=== PATIENT | male | born 1965 | race African-American/Black ===

== ENCOUNTER 2021-06-08 23:40 | Inpatient (IN) | payer OTHER ==
[~2021-06-08] VITALS: Ht 180.3 cm; Wt 99.3 kg
--- NOTE | 2021-06-08 23:51 | NUR ---
PT AAOX3, BIBRA FROM HIS HOME. C/O HAVING R SIDED CP. ALSO, PER RA, PT DID HAVE A "STOMACH BUG" SINCE LAST TUESDAY. PT NOTED TO HAVE A FEVER OF 101.5. PER RA, STATED HE WAS ACTING "WEIRD" AND CONFUSED. PLACED IN BED 6 ON ENGINE LATHE OPERATOR AND PULSE OX. LINE ESTABLISHED LAC 20G, BLOOD WORK COLLECTED, SENT TO LAB.
[2021-06-09] MEDS ORDERED: ACETAMINOPHEN ES 500 MG TABLET ONE (00:29)
[2021-06-09] MEDS ORDERED: ACETAMINOPHEN 325 MG TABLET PO ONE ×2 (00:30→13:30)
[2021-06-09 00:32] LABS: BASOPHILS # (AUTO) 0.1 K/uL (0.0-0.2); BASOPHILS % (AUTO) 0.2 % (0.0-2.0); EOSINOPHILS % (AUTO) 0.1 % (0.0-6.0); HEMATOCRIT 21 % (39-51); HEMOGLOBIN 7.1 g/dL (13.5-17.5); LYMPHOCYTES # (AUTO) 2.3 K/uL (0.8-4.8); LYMPHOCYTES % (AUTO) 10.7 % (20.0-44.0); MEAN CORPUSCULAR HGB CONC 35 g/dl (31.0-36.0); MEAN CORPUSCULAR VOLUME 86 fL (80-96); MONOCYTES # (AUTO) 3.1 K/uL (0.1-1.30); MONOCYTES % (AUTO) 14.7 % (2.0-12.0); NEUTROPHILS # (AUTO) 15.7 K/uL (1.8-8.9); NEUTROPHILS % (AUTO) 74.3 % (43.0-81.0); PLATELET COUNT (AUTO) 106 K/uL (150-450); RED BLOOD CELL COUNT(AUTO) 2.38 MIL/uL (4.5-6.0); WHITE BLOOD COUNT (AUTO) 21.1 K/uL (4.3-11.0)
--- NOTE | 2021-06-09 00:34 | NUR ---
PT NOTED TO BE SAT 88%. PLACED ON 2L NC.
--- NOTE | 2021-06-09 00:38 | NUR ---
UNABLE TO PROVIDE URINE.
--- NOTE | 2021-06-09 00:38 | NUR ---
CUCOID SWABBED, SENT TO LAB.
[2021-06-09 00:45] LABS: CALCIUM, SERUM 8.4 mg/dL (8.5-10.1); CREATININE 3.8 mg/dL (0.6-1.3); POTASSIUM 4.1 mmol/L (3.5-5.1)
[2021-06-09 00:51] LABS: ALBUMIN 3.8 g/dL (3.4-5.0); BILIRUBIN,DIRECT 0.6 mg/dL (0.0-0.2); BILIRUBIN,TOTAL 2.1 mg/dL (0.2-1.0); TOTAL PROTEIN, SERUM 7.4 g/dL (6.4-8.2)
[2021-06-09] MEDS ORDERED: PIPERACILLIN /TAZOBACTAM 3.375 G VIAL IV ONE (00:51)
[2021-06-09] MEDS ORDERED: IV NS 0.9% 1,000 ML BAG IV ONE ×2 (01:00→02:30)
[2021-06-09] MEDS ORDERED: PIPERACILLIN /TAZOBACTAM 3.375 G in IV D5W 50 ML IV ONE (01:00)
--- NOTE | 2021-06-09 01:01 | NUR ---
BRENNAN () STATED THEY MOVED HERE A MONTH AGO. WENT TO [employer] LAST WEEK ATE SOMETHING, STARTED HAVING A STOMACH ACHE. SINCE 2 DAYS AGO, HE HAS BEEN FEELING "WEIRD." CALL BACK.
[2021-06-09] MEDS ORDERED: ASPIRIN 81 MG TAB.CHEW PO ONE (02:00)
[2021-06-09] MEDS ORDERED: ASPIRIN 81 MG TAB.CHEW ONE (02:04)
[2021-06-09] MEDS ORDERED: IV NS 0.9% 1,000 ML IV ONE (02:30)
[2021-06-09 02:39] LABS: BILIRUBIN,URINE Negative (NEGATIVE); COLOR,URINE YELLOW (YELLOW); LEUKOCYTE ESTERASE ,URINE Negative (NEGATIVE); NITRITE, URINE Negative (NEGATIVE); PROTEIN,URINE 30 mg/dl (NEGATIVE); UGLUCOSE Negative (NEGATIVE); UROBILINOGEN,URINE 0.2 EU/dL (0.2)
[2021-06-09] MEDS ORDERED: HYDROMORPHONE INJ 2 MG/ML DISP.SYRIN IV PRN (03:00)
[2021-06-09] MEDS ORDERED: Z GUARD REMEDY 2 OZ OINT TP PRN (03:00)
[2021-06-09] MEDS ORDERED: HEPARIN SODIUM, PORCINE 5000 UNITS/1 ML VIAL SQ SCH (03:00)
[2021-06-09] MEDS ORDERED: IV LR 1000 ML 1,000 ML IV PRN (03:00)
[2021-06-09] MEDS ORDERED: ACETAMINOPHEN 325 MG TABLET PO PRN (03:00)
[2021-06-09] MEDS ORDERED: HEPARIN INFUSION/D5W 500 ML IV PRN (03:00)
[2021-06-09] MEDS ORDERED: MAGNESIUM HYDROXIDE 30 ML UDC PO PRN (03:00)
[2021-06-09] MEDS ORDERED: HEPARIN SODIUM, PORCINE 5000 UNITS/1 ML VIAL IV ONE (03:00)
[2021-06-09 03:12] LABS: BACTERIA,URINE None seen /HPF (None Seen); RBC,URINE 0-2 /HPF (0-2); SQUAMOUS EPITHELIAL CELL,UR None Seen /HPF (None Seen); URINE AMORPHOUS PHOSPHATES Rare /HPF (None Seen); WBC,URINE 0-2 /HPF (0-3)
--- NOTE | 2021-06-09 03:39 | NUR ---
CALLED AFTER HOUR PHARMACY AND SPOKE TO TAILOR TO VERIFY THE ADMITTING ORDERS
[2021-06-09 03:59] LABS: IRON, SERUM 20 ug/dl (50-175); TOTAL IRON BINDING CAPACITY 344 ug/dl (250-450)
[2021-06-09] MEDS ORDERED: HEPARIN INFUSION/D5W 500 ML IV ONE (04:50)
[2021-06-09] MEDS ORDERED: HEPARIN SODIUM, PORCINE 5000 UNITS/1 ML VIAL ONE (04:50)
--- NOTE | 2021-06-09 05:00 | NUR ---
HEPARIN STARTED AT 0500. REDRAW @ 1100
--- NOTE | 2021-06-09 05:24 | NUR ---
PT AWAKE IN BED, REQUESTED FOR BLANKETS.
[2021-06-09 06:15] LABS: BASOPHILS # (AUTO) 0.2 K/uL (0.0-0.2); EOSINOPHILS % (AUTO) 0.2 % (0.0-6.0); LYMPHOCYTES # (AUTO) 2.3 K/uL (0.8-4.8); LYMPHOCYTES % (AUTO) 13.3 % (20.0-44.0); MEAN CORPUSCULAR HGB CONC 34 g/dl (31.0-36.0); MEAN CORPUSCULAR VOLUME 87 fL (80-96); MONOCYTES % (AUTO) 6.2 % (2.0-12.0); NEUTROPHILS # (AUTO) 13.4 K/uL (1.8-8.9); NEUTROPHILS % (AUTO) 79.3 % (43.0-81.0); PLATELET COUNT (AUTO) 95 K/uL (150-450); RED BLOOD CELL COUNT(AUTO) 2.13 MIL/uL (4.5-6.0)
[2021-06-09 06:17] LABS: HEMOGLOBIN 6.3 g/dL (13.5-17.5)
[2021-06-09 06:18] LABS: HEMATOCRIT 19 % (39-51)
[2021-06-09 06:24] LABS: CALCIUM, SERUM 7.6 mg/dL (8.5-10.1); CREATININE 3.4 mg/dL (0.6-1.3); POTASSIUM 3.8 mmol/L (3.5-5.1)
[2021-06-09] MEDS ORDERED: PANTOPRAZOLE 40 MG TABLET.DR PO SCH (07:30)
[2021-06-09] MEDS ORDERED: AMLO1CAP2 PO (07:33)
[2021-06-09] MEDS ORDERED: [UNRECOGNIZED DRUG - REMARK] PO (07:35)
[2021-06-09 08:00] VITALS: BP 137/91
[2021-06-09] MEDS ORDERED: PIPERACILLIN /TAZOBACTAM 3.375 G in IV D5W 100 ML IV SCH (08:00)
--- NOTE | 2021-06-09 08:00 | NUR ---
RN NOTE PT A/Ox4, WALKED FROM [facility] TO BED, STEADY GAIT, BREATHING RA, SPO2 92%, NO RESP DISTRESS OR SOB. PT C/O PAIN 06/30 RLQ ABD PAIN, DENIES CHEST PAIN, WILL ADMIN MEDS ORDERED. PT HAS LAC ACCESS FLUSHED AND INTACT. PT SKIN INTACT. ALL PT SAFETY PRECAUTIONS IN PLACE, WILL CONT TO MONITOR
[2021-06-09] MEDS ORDERED: VANCOMYCIN HCL 1.25 GM in IV D5W 260 ML IV SCH (10:00)
--- NOTE | 2021-06-09 10:00 | NUR ---
RN NOTE PER DR JANES WILKES, HEPARIN DRIP STOPPED FOR LOW H/H
[2021-06-09] MEDS: PANTOPRAZOLE 40 MG VIAL IV SCH ×2 (10:19→18:13)
[2021-06-09] MEDS ORDERED: Medication Not On Formulary EA (Amlodipine Besylate/Benazepril (Lotrel 10-40 Mg Capsule) PO SCH (10:30)
[2021-06-09] MEDS ORDERED: BENAZEPRIL HCL 20 MG TABLET PO SCH (11:00)
[2021-06-09 12:00] VITALS: BP 130/71
[2021-06-09] MEDS: VANCOMYCIN 1 GM in IV D5W 250ml IV SCH (12:00)
[2021-06-09] MEDS ORDERED: CEFTRIAXONE 1 G in IV D5W 50 ML IV SCH (12:00)
[2021-06-09] MEDS: AMLODIPINE BESYLATE 10 MG TABLET PO SCH (12:00)
[2021-06-09] MEDS: IV LR 1000 ML 1,000 ML IV PRN ×2 (12:01→22:56)
[2021-06-09] MEDS: HYDROMORPHONE INJ 2 MG/ML DISP.SYRIN IV PRN ×5 (12:09→22:56)
[2021-06-09 13:16] LABS: LYMPHOCYTES % (MANUAL) 14 % (16-48); MONOCYTES % (MANUAL) 8 % (0-11.0); NEUTROPHILS % (MANUAL) 78 (42-76)
[2021-06-09] MEDS ORDERED: diphenhydrAMINE HCL 50 MG/ML VIAL IV ONE (13:30)
[2021-06-09] MEDS ORDERED: DEXAMETHASONE SOD PHOSPHATE 10 MG/ML VIAL IV ONE (13:30)
[2021-06-09] MEDS ORDERED: SOD FERRIC GLUC 125 MG in IV NS 0.9% 100 ML IV SCH (14:00)
[2021-06-09 14:55] LABS: HEMOGLOBIN 6.5 g/dL (13.5-17.5)
[2021-06-09 16:00] VITALS: BP 110/59
--- NOTE | 2021-06-09 19:00 | NUR ---
RN CLOSING NOTE NO CHANGES TO PT DURING SHIFT, JARED ENDORSED TO RN
--- NOTE | 2021-06-09 19:15 | NUR ---
RECEIVED PT AWAKE A/Ox4, BREATHING RA, SPO2 96%, NO RESP DISTRESS OR SOB. PT C/O PAIN 8 RLQ ABD PAIN, DENIES CHEST PAIN, WILL ADMIN MEDS ORDERED. PT HAS LAC ACCESS FLUSHED AND INTACT.TELE MONITOR READS SINUS RHYTHM 90'S PT SKIN INTACT. ALL PT SAFETY PRECAUTIONS IN PLACE, WILL CONT TO MONITOR
[2021-06-09 20:00] VITALS: BP 148/71
[2021-06-09 20:43] LABS: OCCULT BLOOD STOOL NEGATIVE (NEGATIVE)
[2021-06-09] MEDS: CEFTRIAXONE 1 G in IV D5W 50 ML IV SCH (20:47)
[2021-06-10] VITALS (9 sets, daily range): BP systolic 104–132; BP diastolic 62–76
[2021-06-10] MEDS: HYDROMORPHONE INJ 2 MG/ML DISP.SYRIN IV PRN ×7 (03:20→22:32)
--- NOTE | 2021-06-10 03:30 | NUR ---
BLOOD TRANSFUSION STARTED, BLOOD VERIFY AND CHECKED WITH OTHER NURSE, V.S CHECKED AND RECORDED PT IS SLEEPING INTERMITTENTLY BUT EASY TO WAKE UP A/O X4 WILL CONT TO MONITOR
--- NOTE | 2021-06-10 06:35 | NUR ---
BLOOD TRANSFUSION ENDED AND TOLERATING WELL, V/S CHECKED AND RECORDED, PT STILL ON ROOM AIR SPO2 95% NO SIGN OF ANY RESPIRATORY DISTRESS NOTED, PAIN ON RIGHT LOWER ABDOMEN STILL COMPLAINT, PRN MEDS GIVEN, ALL NEEDS ATTENDED, TELE MONITOR READS SINUS RHYTHM 80'S, BED ON LOWEST POSITION AND LOCKED SIDE RAILS UP X2 CALL LIGHT WITHIN REACH WILL ENDORSED TO AM SHIFT NURSE
--- NOTE | 2021-06-10 07:10 | NUR ---
RN OPENING NOTES RECEIVED PT AWAKE, A/O X4. STABLE ON ROOM AIR, SATING 97%. NO SOB OR ANY S/S RESPIRATORY DISTRESS. DENIES CHEST PAIN. IV ACCESS AT LAC #20 AND ADI MIDLINE BOTH INTACT AND PATENT.TELE MONITOR READS SINUS RHYTHM. SKIN INTACT. AMBULATORY. BRP. SAFETY PRECAUTIONS IN PLACE. CALL LIGHT WITHIN REACH. BED LOCKED AND IN LOWEST POSITION WITH SIDE RAILS UP X2. WILL CONTINUE TO MONITOR.
[2021-06-10] MEDS: PANTOPRAZOLE 40 MG VIAL IV SCH (08:18)
[2021-06-10] MEDS: AMLODIPINE BESYLATE 10 MG TABLET PO SCH (09:00)
[2021-06-10 09:07] LABS: *SPE ALBUMIN 3.1 g/dL (2.9-4.4); *SPE ALPHA-1-GLOBULIN 0.3 g/dL (0.0-0.4); *SPE ALPHA-2-GLOBULIN 0.6 g/dL (0.4-1.0); *SPE BETA GLOBULIN 0.8 g/dL (0.7-1.3); *SPE GLOBULIN, TOTAL 3.2 g/dL (2.2-3.9); *SPE M-SPIKE 0.6 g/dL (Not Observed); *SPEGAMMA GLOBULIN 1.5 g/dL (0.4-1.8)
[2021-06-10 09:21] LABS: BASOPHILS # (AUTO) 0.1 K/uL (0.0-0.2); BASOPHILS % (AUTO) 0.4 % (0.0-2.0); EOSINOPHILS % (AUTO) 0.1 % (0.0-6.0); HEMATOCRIT 21 % (39-51); HEMOGLOBIN 7.4 g/dL (13.5-17.5); LYMPHOCYTES # (AUTO) 0.9 K/uL (0.8-4.8); MEAN CORPUSCULAR HGB CONC 35 g/dl (31.0-36.0); MEAN CORPUSCULAR VOLUME 88 fL (80-96); MONOCYTES # (AUTO) 1.9 K/uL (0.1-1.30); MONOCYTES % (AUTO) 10.7 % (2.0-12.0); NEUTROPHILS # (AUTO) 15.2 K/uL (1.8-8.9); NEUTROPHILS % (AUTO) 83.8 % (43.0-81.0); PLATELET COUNT (AUTO) 129 K/uL (150-450); RED BLOOD CELL COUNT(AUTO) 2.39 MIL/uL (4.5-6.0); WHITE BLOOD COUNT (AUTO) 18.1 K/uL (4.3-11.0)
[2021-06-10 09:32] LABS: CALCIUM, SERUM 8.4 mg/dL (8.5-10.1); CREATININE 2.3 mg/dL (0.6-1.3); MAGNESIUM 2.5 mg/dL (1.8-2.4); POTASSIUM 4.3 mmol/L (3.5-5.1)
[2021-06-10] MEDS: VANCOMYCIN 1 GM in IV D5W 250ml IV SCH (11:56)
[2021-06-10] MEDS: IV LR 1000 ML 1,000 ML IV PRN (11:56)
[2021-06-10] MEDS: diphenhydrAMINE HCL 50 MG/ML VIAL IV PRN ×2 (12:35→21:20)
[2021-06-10] MEDS: PANTOPRAZOLE 40 MG TABLET.DR PO SCH (16:56)
[2021-06-10] MEDS: DIPHENOXYLATE HCL/ATROP SULF 1 UDTAB TABLET PO PRN (16:56)
--- NOTE | 2021-06-10 19:20 | NUR ---
RN CLOSING NOTES PATIENT A/O X4. COMPLAINS OF CHRONIC PAIN R/T SICKLE CELL RELIEVED AFTER ADMINISTRATION OF DILAUDID, HAD EPISODE OF LOOSE STOOL, SAMPLE COLLECTED SENT TO LAB TO RULE OUT C-DIFF UNDER PROTOCOL. IV ACCESS AT LAC #20 AND ADI MIDLINE BOTH INTACT AND PATENT.REFUSED TO WEAR TELE BOX, REASSIGNED TO MED SURG PER MD. SKIN REMAINS INTACT. PATIENT IS AMBULATORY WITH BRP. SAFETY PRECAUTIONS IN PLACE. CALL LIGHT WITHIN REACH. BED LOCKED AND IN LOWEST POSITION WITH SIDE RAILS UP X2. WILL ENDORSE TO NEXT INCOMING SHIFT.
[2021-06-10] MEDS: ONDANSETRON HCL/PF 4 MG/2 ML VIAL IVP PRN (19:22)
--- NOTE | 2021-06-10 19:30 | NUR ---
RN OPENING NOTES PT RECEIVED IN BED. A&OX4. PT IS CURRENTLY ON ROOM AIR WITH O2 SAT >95%. PT IS AMBULATORY WITH NORMAL SR IN 80S. SKIN IS INTACT. PT IS ON CARDIAC DIET. PT HAS ADI MIDLINE AND L AC GAUGE 20 WITH LR INFUSING AT @125ML/HR. ALL SAFETY MEASURES IMPLEMENTED. CALL LIGHT WITHIN REACH. BED LOCKED AND IN LOWEST POSITION. BED ALARM ON. WILL CONTINUE TO MONITOR THROUGHOUT THE SHIFT.
[2021-06-10] MEDS: CEFTRIAXONE 1 G in IV D5W 50 ML IV SCH (21:20)
[2021-06-10] MEDS ORDERED: METRONIDAZOLE 500MG/ NS 100ML 100 ML IV ONE (21:50)
[2021-06-10] MEDS: METRONIDAZOLE 500MG/ NS 100ML 500 MG in PREMIX 1 EA IV SCH (21:59)
[2021-06-11] MEDS: HYDROMORPHONE INJ 2 MG/ML DISP.SYRIN IV PRN ×7 (01:47→21:52)
[2021-06-11 04:00] VITALS: BP 147/86
--- NOTE | 2021-06-11 04:00 | NUR ---
RN NOTES STARTED 24 HOUR URINE COLLECTION; SPECIMEN CONTAINER @BEDSIDE. GAMBLING BROKER WELL AWARE.
[2021-06-11] MEDS ORDERED: METRONIDAZOLE 500MG/ NS 100ML 100 ML IV ONE (05:00)
[2021-06-11] MEDS: METRONIDAZOLE 500MG/ NS 100ML 500 MG in PREMIX 1 EA IV SCH ×3 (05:22→21:37)
[2021-06-11 06:19] LABS: BASOPHILS # (AUTO) 0.1 K/uL (0.0-0.2); BASOPHILS % (AUTO) 0.5 % (0.0-2.0); EOSINOPHILS % (AUTO) 0.1 % (0.0-6.0); HEMATOCRIT 23 % (39-51); HEMOGLOBIN 7.7 g/dL (13.5-17.5); LYMPHOCYTES # (AUTO) 2.9 K/uL (0.8-4.8); LYMPHOCYTES % (AUTO) 15.2 % (20.0-44.0); MEAN CORPUSCULAR HGB CONC 34 g/dl (31.0-36.0); MEAN CORPUSCULAR VOLUME 90 fL (80-96); MONOCYTES % (AUTO) 10.7 % (2.0-12.0); NEUTROPHILS % (AUTO) 73.5 % (43.0-81.0); PLATELET COUNT (AUTO) 151 K/uL (150-450); RED BLOOD CELL COUNT(AUTO) 2.52 MIL/uL (4.5-6.0)
[2021-06-11 06:43] LABS: ALBUMIN 3.1 g/dL (3.4-5.0); BILIRUBIN,DIRECT 0.3 mg/dL (0.0-0.2); BILIRUBIN,TOTAL 1.3 mg/dL (0.2-1.0); TOTAL PROTEIN, SERUM 6.5 g/dL (6.4-8.2)
[2021-06-11 06:57] LABS: CALCIUM, SERUM 9.1 mg/dL (8.5-10.1)
--- NOTE | 2021-06-11 06:59 | NUR ---
RN CLOSING NOTES NO SIGNIFICANT CHANGES IN PT CONDITION. NO S/S OF RESP DISTRESS/SOB. ALL DUE MEDS GIVEN. PT KEPT CLEAN AND COMFORTABLE. ALL SAFETY MEASURES IMPLEMENTED. WILL ENDORSE TO MORNING SHIFT RN FOR JARED.
[2021-06-11] MEDS: IV LR 1000 ML 1,000 ML IV PRN ×2 (07:01)
--- NOTE | 2021-06-11 07:48 | NUR ---
RN OPENING NOTES RECEIVED PATIENT AWAKE IN BED. ALERT AND ORIENTED X 4. NO SIGNS OR SYMPTOMS OF DISTRESS NOTED. NO COMPLAINTS OF PAIN AT THIS TIME. IV ACCESS ADI MIDLINE AND LAC#20 PATENT AND INTACT. ON ROOM AIR, TOLERATING WELL. SAFETY MEASURES IN PLACE WITH BED AT LOWEST POSITION AND SIDE RAILS UP X 2. CALL LIGHT IS WITHIN REACH. WILL CONTINUE TO MONITOR THROUGHOUT SHIFT.
[2021-06-11] MEDS: PANTOPRAZOLE 40 MG TABLET.DR PO SCH ×2 (08:23→17:45)
[2021-06-11] MEDS: AMLODIPINE BESYLATE 10 MG TABLET PO SCH (08:23)
[2021-06-11 12:00] VITALS: BP 137/68
[2021-06-11] MEDS: CHOLESTYRAMINE/ASPARTAME 4 G/PKT PACKET PO SCH (12:48)
--- NOTE | 2021-06-11 15:50 | NUR ---
RN NOTE ADI MIDLINE REMOVED ACCIDENTALLY WHEN MOVING IV POLE. GAUZE AND TAPE PLACED OVER IV SITE. CHARGE NURSE, SOON MADE AWARE.
--- NOTE | 2021-06-11 18:06 | NUR ---
RN NOTE PATIENT RETURNED FROM RADIOLOGY. PER [employer] PATIENT REFUSED TO COMPLETE SCAN. CHARGE NURSE MADE AWARE
--- NOTE | 2021-06-11 19:02 | NUR ---
RN CLOSING NOTES PATIENT IS AWAKE IN BED. ALERT AND ORIENTED X 4. NO SIGNS OR SYMPTOMS OF DISTRESS NOTED. NO COMPLAINTS OF PAIN AT THIS TIME. NEW IV ACCESS JAYMIE MIDLINE PATENT AND INTACT. ON ROOM AIR, TOLERATING WELL. SAFETY MEASURES IN PLACE WITH BED AT LOWEST POSITION AND SIDE RAILS UP X 2. CALL LIGHT IS WITHIN REACH. WILL ENDORSE CONTINUITY OF CARE TO ONCOMING SHIFT.
--- NOTE | 2021-06-11 19:30 | NUR ---
RN OPENING NOTES: RECEIVED PT A/OX4 IN BED RESTING COMFORTABLY. PATIENT IN NO S/SX OF ACUTE DISTRESS AT THIS TIME. NO SOB NOTED. PATIENT'S BREATHING IS EVEN AND UNLABORED. PATIENT IS ON ROOM AIR TOLERATING WELL. PATIENT ON CARDIAC DIET; TOLERATES WELL. NOTED IV SITE ON L UA MIDLINE #18 ; PATENT, INTACT AND FLUSHING WELL; NO S/S OF INFECTION OR INFILTRATION. SAFETY MEASURES HAVE BEEN PROVIDED AND IMPLEMENTED. PATIENT BED ALARM IS ON. HEAD OF BED ELEVATED. BED IS LOCKED, IN LOWEST POSITION AND SIDE RAILS UP. CALL LIGHT WITHIN REACH OF THE PATIENT. APPLICABLE ISOLATION PRECAUTIONS IN PLACE. WILL CONTINUE TO MONITOR AND REASSESS FOR ANY CHANGES AND WILL CARRY OUT ANY ONGOING AND ACTIVE MD ORDER.
[2021-06-11 20:00] VITALS: BP 154/99
[2021-06-11 20:08] VITALS: BP 154/99
[2021-06-11 21:06] LABS: *ANA ANTI-CENTROMERE B AB <0.2 AI (0.0-0.9); *ANA ANTI-DNA(DS) AB, QN 1 IU/mL (0-9); *ANA ANTI-JO-1 <0.2 AI (0.0-0.9); *ANA ANTICHROMATIN ANTIBODY <0.2 AI (0.0-0.9); *ANA RNP ANTIBODIES <0.2 AI (0.0-0.9); *ANA SJOGREN'S ANTI-SS-A 0.5 AI (0.0-0.9); *ANA SJOGREN'S ANTI-SS-B <0.2 AI (0.0-0.9); *ANAANTI-SCLERODERMA-70 AB <0.2 AI (0.0-0.9); *ANASMITH AB <0.2 AI (0.0-0.9)
[2021-06-11] MEDS: CEFTRIAXONE 1 G in IV D5W 50 ML IV SCH (21:37)
[2021-06-11] MEDS: diphenhydrAMINE HCL 50 MG/ML VIAL IV PRN (21:52)
--- NOTE | 2021-06-11 23:00 | NUR ---
RN NOTES NO CHANGE IN PATIENT CONDITION AT THIS TIME PATIENT VITALS STABLE, NO SIGNS OF ACUTE RESPIRATORY DISTRESS. CARE TRANSITIONS NURSE MADE AWARE. WILL CONTINUE TO MONITOR AND REASSESS FOR ANY CHANGES THROUGHOUT THE SHIFT.
--- NOTE | 2021-06-12 04:00 | NUR ---
RN NOTES DONE WITH 24 HOUR URINE COLLECTION; PULVI MIXER OPERATOR WELL AWARE. SPECIMEN TURNED OVER TO LAB.
--- NOTE | 2021-06-12 04:00 | NUR ---
RN NOTES PT REFUSED VITALS SIGNS TO BE TAKEN; RISK AND BENEFITS EXPLAINED, PT STILL REFUSED. FRONT END ARCHITECT WELL AWARE.
[2021-06-12] MEDS: METRONIDAZOLE 500MG/ NS 100ML 500 MG in PREMIX 1 EA IV SCH ×3 (05:46→20:57)
[2021-06-12] MEDS: HYDROMORPHONE INJ 2 MG/ML DISP.SYRIN IV PRN ×5 (05:54→18:57)
--- NOTE | 2021-06-12 06:44 | NUR ---
RN CLOSING NOTE: PATIENT REMAINS IN ROOM IN NO SIGNS OF RESPIRATORY DISTRESS, PATIENT STILL ON ROOM AIR ;TOLERATING WELL SATURATING @ >95% SP02. SAFETY MEASURES IMPLEMENTED, BED IN LOWEST POSITION, LOCKED, SIDE RAILS UP, CALL LIGHT WITHIN REACH. ALL NEEDS AND ORDERS ADDRESSED DURING THE SHIFT. IV ACCESS MAINTAINED INTACT, SECURED AND FLUSHING WELL. ALL DUE MEDS GIVEN ORDERED & SCHEDULED ; PATIENT TOLERATED WELL. PATIENT KEPT CLEAN AND COMFORTABLE WITHIN THE SHIFT. PATIENT ENDORSED TO INCOMING SHIFT RN WITH STABLE VITAL SIGN AND FOR CONTINUITY OF CARE.
[2021-06-12 07:02] LABS: BASOPHILS # (AUTO) 0.1 K/uL (0.0-0.2); EOSINOPHILS % (AUTO) 0.5 % (0.0-6.0); HEMATOCRIT 23 % (39-51); HEMOGLOBIN 7.6 g/dL (13.5-17.5); LYMPHOCYTES # (AUTO) 1.7 K/uL (0.8-4.8); LYMPHOCYTES % (AUTO) 11.5 % (20.0-44.0); MEAN CORPUSCULAR HGB CONC 34 g/dl (31.0-36.0); MEAN CORPUSCULAR VOLUME 91 fL (80-96); MONOCYTES # (AUTO) 1.4 K/uL (0.1-1.30); MONOCYTES % (AUTO) 9.6 % (2.0-12.0); NEUTROPHILS # (AUTO) 11.6 K/uL (1.8-8.9); NEUTROPHILS % (AUTO) 77.4 % (43.0-81.0); PLATELET COUNT (AUTO) 183 K/uL (150-450); RED BLOOD CELL COUNT(AUTO) 2.51 MIL/uL (4.5-6.0)
[2021-06-12 07:23] LABS: CALCIUM, SERUM 8.5 mg/dL (8.5-10.1); CREATININE 1.7 mg/dL (0.6-1.3); POTASSIUM 3.8 mmol/L (3.5-5.1)
[2021-06-12 08:28] VITALS: BP 154/101
[2021-06-12] MEDS: AMLODIPINE BESYLATE 10 MG TABLET PO SCH (08:34)
[2021-06-12] MEDS: PANTOPRAZOLE 40 MG TABLET.DR PO SCH ×2 (08:34→17:38)
[2021-06-12 09:45] VITALS: BP 151/101
[2021-06-12] MEDS: hydrALAZINE HCL 50 MG TABLET PO SCH ×3 (09:46→17:38)
[2021-06-12 10:14] LABS: EOSINOPHILS % (MANUAL) 2 % (0-4); LYMPHOCYTES % (MANUAL) 14 % (16-48); MONOCYTES % (MANUAL) 9 % (0-11.0); NEUTROPHILS % (MANUAL) 75 (42-76)
[2021-06-12] MEDS: NITROGLYCERIN 30 GM TUBE TP SCH ×2 (10:45→20:58)
[2021-06-12] MEDS: IV LR 1000 ML 1,000 ML IV PRN ×3 (10:52→18:29)
[2021-06-12 12:00] VITALS: BP 156/97
[2021-06-12] MEDS: CHOLESTYRAMINE/ASPARTAME 4 G/PKT PACKET PO SCH ×3 (12:39→23:45)
[2021-06-12] MEDS: ONDANSETRON HCL/PF 4 MG/2 ML VIAL IVP PRN ×2 (14:19→22:00)
[2021-06-12] MEDS: ENSURE CLEAR 237 ML LIQUID (MIX BERRY) PO SCH (17:38)
--- NOTE | 2021-06-12 18:36 | NUR ---
RN CLOSING NOTE Vance is A/ox4, in no acute distress, spo2 >95% on room air. BP managed with BP medications. Dilauded given for abdominal pain and Tylenol for headache. Pt uses urinal and ambulated to bathroom with supervision, BM x1. IVF running LR @125ml/hr. All needs met, all due meds given, independent with self-care. Safety measures in place, call light within reach, will endorse to next shift for JARED.
--- NOTE | 2021-06-12 19:30 | NUR ---
RN OPENING NOTES: RECEIVED PT A/OX4 IN BED RESTING COMFORTABLY. PATIENT IN NO S/SX OF ACUTE DISTRESS AT THIS TIME. NO SOB NOTED. PATIENT'S BREATHING IS EVEN AND UNLABORED. PATIENT IS ON ROOM AIR TOLERATING WELL. PATIENT ON CARDIAC DIET; TOLERATES WELL. NOTED IV SITE ON L UA MIDLINE #18 ; PATENT, INTACT AND FLUSHING WELL; NO S/S OF INFECTION OR INFILTRATION. WITH IV FLUID RUNNING ORDERED. SAFETY MEASURES HAVE BEEN PROVIDED AND IMPLEMENTED. PATIENT BED ALARM IS ON. HEAD OF BED ELEVATED. BED IS LOCKED, IN LOWEST POSITION AND SIDE RAILS UP. CALL LIGHT WITHIN REACH OF THE PATIENT. APPLICABLE ISOLATION PRECAUTIONS IN PLACE. WILL CONTINUE TO MONITOR AND REASSESS FOR ANY CHANGES AND WILL CARRY OUT ANY ONGOING AND ACTIVE MD ORDER.
[2021-06-12 20:00] VITALS: BP 150/97
[2021-06-12] MEDS: CEFTRIAXONE 1 G in IV D5W 50 ML IV SCH (20:57)
[2021-06-12] MEDS: HYDROMORPHONE 1 MG/1 ML DISP.SYRIN IV PRN (22:00)
--- NOTE | 2021-06-12 23:00 | NUR ---
RN NOTES NO CHANGE IN PATIENT CONDITION AT THIS TIME PATIENT VITALS STABLE, NO SIGNS OF ACUTE RESPIRATORY DISTRESS. FURNITURE ASSEMBLY SUPERVISOR MADE AWARE. WILL CONTINUE TO MONITOR AND REASSESS FOR ANY CHANGES THROUGHOUT THE SHIFT.
[2021-06-13] MEDS: HYDROMORPHONE 1 MG/1 ML DISP.SYRIN IV PRN ×6 (02:05→20:11)
[2021-06-13] MEDS: IV LR 1000 ML 1,000 ML IV PRN (03:01)
[2021-06-13 04:00] VITALS: BP 138/75
[2021-06-13] MEDS: diphenhydrAMINE HCL 50 MG/ML VIAL IV PRN (05:24)
[2021-06-13] MEDS: METRONIDAZOLE 500MG/ NS 100ML 500 MG in PREMIX 1 EA IV SCH ×3 (05:24→20:09)
--- NOTE | 2021-06-13 06:11 | NUR ---
RN NOTES WELDER FITTER ARC ADVISED THAT BLOOD DRAW FOR AM LAB WAS UNSUCCESSFUL; WILL SEND SOMEONE TO DO RE-DRAW. RN ACKNOWLEDGED. SALES AND LEASING AGENT MADE AWARE.
--- NOTE | 2021-06-13 06:54 | NUR ---
RN CLOSING NOTE: PATIENT REMAINS IN ROOM IN NO SIGNS OF RESPIRATORY DISTRESS, PATIENT STILL ON ROOM AIR ;TOLERATING WELL SATURATING @ >95% SP02. SAFETY MEASURES IMPLEMENTED, BED IN LOWEST POSITION, LOCKED, SIDE RAILS UP, CALL LIGHT WITHIN REACH. ALL NEEDS AND ORDERS ADDRESSED DURING THE SHIFT. IV ACCESS MAINTAINED INTACT, SECURED AND FLUSHING WELL. ALL DUE MEDS GIVEN ORDERED & SCHEDULED ; PATIENT TOLERATED WELL. PATIENT KEPT CLEAN & COMFORTABLE WITHIN THE SHIFT. PATIENT ENDORSED TO INCOMING SHIFT RN WITH STABLE VITAL SIGN AND FOR CONTINUITY OF CARE.
--- NOTE | 2021-06-13 07:30 | NUR ---
RN OPENING NOTES: RECEIVED PT A/OX4 IN BED RESTING COMFORTABLY. PATIENT IN NO S/SX OF ACUTE DISTRESS AT THIS TIME. NO SOB NOTED. RESPIRATION IS UNLABORED ON ROOM AIR. DENIES ANY PAIN. IV SITE ON L UA MIDLINE #18 FLUSHES WELL. ONGOING IV FLUID LR AT 125 ML/HR, SITE CLEAR. ON CARDIAC DIET; SAFETY MEASURES IN PLACE. PATIENT BED ALARM IS ON. HEAD OF BED ELEVATED. BED IS LOCKED, IN LOWEST POSITION AND SIDE RAILS UP. CALL LIGHT WITHIN REACH OF THE PATIENT. WILL CONTINUE TO MONITOR AND REASSESS FOR ANY CHANGES AND WILL CARRY OUT ANY ONGOING AND ACTIVE MD ORDER.
[2021-06-13 08:00] VITALS: BP 156/76
[2021-06-13] MEDS: PANTOPRAZOLE 40 MG TABLET.DR PO SCH ×2 (09:06→16:29)
[2021-06-13] MEDS: AMLODIPINE BESYLATE 10 MG TABLET PO SCH (09:07)
[2021-06-13] MEDS: hydrALAZINE HCL 50 MG TABLET PO SCH ×3 (09:07→16:29)
[2021-06-13] MEDS: ENSURE CLEAR 237 ML LIQUID (MIX BERRY) PO SCH ×3 (09:11→16:28)
[2021-06-13] MEDS: NITROGLYCERIN 30 GM TUBE TP SCH ×2 (09:12→21:32)
--- NOTE | 2021-06-13 09:30 | NUR ---
MS RN NOTES DUE MEDS GIVEN
[2021-06-13 12:00] VITALS: BP 139/86
[2021-06-13 12:19] LABS: BASOPHILS # (AUTO) 0.2 K/uL (0.0-0.2); BASOPHILS % (AUTO) 1.6 % (0.0-2.0); EOSINOPHILS % (AUTO) 1.5 % (0.0-6.0); HEMATOCRIT 23 % (39-51); HEMOGLOBIN 7.8 g/dL (13.5-17.5); LYMPHOCYTES # (AUTO) 2.5 K/uL (0.8-4.8); LYMPHOCYTES % (AUTO) 20.9 % (20.0-44.0); MEAN CORPUSCULAR HGB CONC 34 g/dl (31.0-36.0); MEAN CORPUSCULAR VOLUME 90 fL (80-96); MONOCYTES # (AUTO) 0.9 K/uL (0.1-1.30); NEUTROPHILS # (AUTO) 8.1 K/uL (1.8-8.9); PLATELET COUNT (AUTO) 215 K/uL (150-450); RED BLOOD CELL COUNT(AUTO) 2.58 MIL/uL (4.5-6.0); WHITE BLOOD COUNT (AUTO) 11.9 K/uL (4.3-11.0)
[2021-06-13] MEDS: CHOLESTYRAMINE/ASPARTAME 4 G/PKT PACKET PO SCH (12:38)
[2021-06-13 12:48] LABS: CALCIUM, SERUM 8.4 mg/dL (8.5-10.1); CREATININE 1.5 mg/dL (0.6-1.3); POTASSIUM 3.7 mmol/L (3.5-5.1)
[2021-06-13 16:00] VITALS: BP 137/83
--- NOTE | 2021-06-13 16:30 | NUR ---
RN NOTES DR. WILKES NOTIFIED ABOUT PATIENT'S - RIGO WANTS TO SPEAK WITH HIM RIGO - TEL # [phone]
--- NOTE | 2021-06-13 18:43 | NUR ---
RN NOTES ALL NEEDS MET. NO OTHER SIGNIFICANT CHANGE IN CONDITION. PM CARE DONE. STABLE. WILL ENDORSE TO NEXT SHIFT FOR JARED.
[2021-06-13 20:00] VITALS: BP 159/99
[2021-06-13] MEDS: CEFTRIAXONE 1 G in IV D5W 50 ML IV SCH (20:09)
[2021-06-13] MEDS: METRONIDAZOLE 500 MG TABLET PO SCH (21:31)
[2021-06-14] MEDS: HYDROMORPHONE 1 MG/1 ML DISP.SYRIN IV PRN ×6 (04:56→22:11)
[2021-06-14] MEDS: METRONIDAZOLE 500 MG TABLET PO SCH ×3 (05:00→20:32)
--- NOTE | 2021-06-14 07:25 | NUR ---
RN OPENING NOTES: Patient is alert and oriented x 4, no respiratory distress. Left upper arm midline patent, dressing clean-intact with no s/sx of infiltration. Bed in locked position with bed alarm on, in lowest position with side rails up. Call light within reach.
[2021-06-14] MEDS: hydrALAZINE HCL 50 MG TABLET PO SCH ×3 (08:28→16:56)
[2021-06-14] MEDS: AMLODIPINE BESYLATE 10 MG TABLET PO SCH (08:28)
[2021-06-14] MEDS: NITROGLYCERIN 30 GM TUBE TP SCH ×2 (08:29→20:33)
[2021-06-14] MEDS: PANTOPRAZOLE 40 MG TABLET.DR PO SCH ×2 (08:29→16:56)
[2021-06-14] MEDS: ENSURE CLEAR 237 ML LIQUID (MIX BERRY) PO SCH ×3 (08:29→16:56)
[2021-06-14] MEDS: CIPROFLOXACIN HCL 250 MG TABLET PO SCH ×2 (08:29→20:32)
[2021-06-14] MEDS: CHOLESTYRAMINE/ASPARTAME 4 G/PKT PACKET PO SCH ×2 (11:42)
[2021-06-14 12:00] VITALS: BP 145/95
[2021-06-14] MEDS: diphenhydrAMINE HCL 50 MG/ML VIAL IV PRN (13:13)
[2021-06-14 14:49] LABS: BASOPHILS # (AUTO) 0.2 K/uL (0.0-0.2); BASOPHILS % (AUTO) 1.2 % (0.0-2.0); HEMATOCRIT 24 % (39-51); HEMOGLOBIN 8.2 g/dL (13.5-17.5); LYMPHOCYTES # (AUTO) 5.9 K/uL (0.8-4.8); MEAN CORPUSCULAR HGB CONC 34 g/dl (31.0-36.0); MEAN CORPUSCULAR VOLUME 92 fL (80-96); MONOCYTES # (AUTO) 0.6 K/uL (0.1-1.30); MONOCYTES % (AUTO) 4.1 % (2.0-12.0); NEUTROPHILS # (AUTO) 6.8 K/uL (1.8-8.9); NEUTROPHILS % (AUTO) 49.7 % (43.0-81.0); PLATELET COUNT (AUTO) 241 K/uL (150-450); RED BLOOD CELL COUNT(AUTO) 2.64 MIL/uL (4.5-6.0); WHITE BLOOD COUNT (AUTO) 13.7 K/uL (4.3-11.0)
[2021-06-14 15:08] LABS: CALCIUM, SERUM 8.9 mg/dL (8.5-10.1); CREATININE 1.6 mg/dL (0.6-1.3); POTASSIUM 3.9 mmol/L (3.5-5.1)
[2021-06-14 15:16] LABS: EOSINOPHILS % (MANUAL) 2 % (0-4); LYMPHOCYTES % (MANUAL) 24 % (16-48); MONOCYTES % (MANUAL) 7 % (0-11.0); NEUTROPHILS % (MANUAL) 67 (42-76)
[2021-06-14] MEDS: ONDANSETRON HCL/PF 4 MG/2 ML VIAL IVP PRN (18:28)
--- NOTE | 2021-06-14 19:01 | NUR ---
RN CLOSING NOTES Patient is alert and oriented x 4, no respiratory distress, on room air, ambulatory. Complains of chronic pain relieved after administration of dilaudid PRN. Patient is schedule for bone marrow biopsy in AM. Remains on ATB PO for sepsis. No loose bowel movement noted. Safety check done bed locked in lowest position. Call light within reach.
--- NOTE | 2021-06-14 19:30 | NUR ---
RN OPENING NOTES PT RECEIVED SITTING IN CHAIR HAVING DINNER. PT IS ON ROOM AIR WITH NO S/S OF RESPIRATORY DISTRESS/SOB. CURRENTLY A&OX4, AMBULATORY. SKIN IS INTACT. PT IS ON REGULAR DIET AND HAS LEFT UPPER ARM MIDLINE FLUSHED, PATENT, AND INTACT. ALL SAFETY MEASURES IMPLEMENTED. BED LOCKED AND IN LOWEST POSITION. BED ALARM ON. CALL LIGHT WITHIN REACH. WILL CONTINUE TO MONITOR THROUGHOUT THE SHIFT.
[2021-06-14 20:00] VITALS: BP 124/65
[2021-06-15] MEDS: CHOLESTYRAMINE/ASPARTAME 4 G/PKT PACKET PO SCH (00:01)
[2021-06-15] MEDS: HYDROMORPHONE 1 MG/1 ML DISP.SYRIN IV PRN ×5 (03:54→22:24)
[2021-06-15 04:00] VITALS: BP 139/82
[2021-06-15] MEDS: METRONIDAZOLE 500 MG TABLET PO SCH ×3 (04:08→20:24)
[2021-06-15 06:11] LABS: CALCIUM, SERUM 8.5 mg/dL (8.5-10.1); CREATININE 1.5 mg/dL (0.6-1.3); POTASSIUM 3.7 mmol/L (3.5-5.1)
--- NOTE | 2021-06-15 06:36 | NUR ---
RN CLOSING NOTES NO CHANGES IN PT CONDITION THROUGHOUT THE SHIFT. PT IS STABLE, A&OX4. CURRENTLY ON ROOM AIR WITH NO S/S OF RESPIRATORY DISTRESS/SOB. SKIN IS INTACT. PT HAS LEFT UPPER ARM MIDLINE FLUSHED, PATENT, AND INTACT. PT KEPT CLEAN AND COMFORTABLE. ALL DUE MEDS GIVEN ORDERED. ALL SAFETY MEASURES IMPLEMENTED. WILL ENDORSE TO MORNING SHIFT RN FOR JARED.
--- NOTE | 2021-06-15 07:30 | NUR ---
RN OPENING NOTES: RECEIVED PT A/OX4 IN BED RESTING COMFORTABLY. PATIENT IN NO S/SX OF ACUTE DISTRESS AT THIS TIME. NO SOB NOTED. RESPIRATION IS UNLABORED ON ROOM AIR. DENIES ANY PAIN. IV SITE ON L UA MIDLINE #18 FLUSHES WELL. SITE CLEAR. ON REGULAR DIET; SAFETY MEASURES IN PLACE. PATIENT BED ALARM IS ON. HEAD OF BED ELEVATED. BED IS LOCKED, IN LOWEST POSITION AND SIDE RAILS UP. CALL LIGHT WITHIN REACH OF THE PATIENT. WILL CONTINUE TO MONITOR AND REASSESS FOR ANY CHANGES AND WILL CARRY OUT ANY ONGOING AND ACTIVE MD ORDER. PATIENT FOR BONE MARROW ASPIRATION AND BIOPSY. CONSENT SIGNED
[2021-06-15 08:00] VITALS: BP 132/90
[2021-06-15] MEDS: AMLODIPINE BESYLATE 10 MG TABLET PO SCH (09:10)
[2021-06-15] MEDS: CIPROFLOXACIN HCL 250 MG TABLET PO SCH ×2 (09:11→20:24)
[2021-06-15] MEDS: hydrALAZINE HCL 50 MG TABLET PO SCH ×3 (09:11→16:54)
[2021-06-15] MEDS: PANTOPRAZOLE 40 MG TABLET.DR PO SCH ×2 (09:11→16:54)
[2021-06-15] MEDS: ENSURE CLEAR 237 ML LIQUID (MIX BERRY) PO SCH ×3 (09:12→16:54)
[2021-06-15] MEDS: NITROGLYCERIN 30 GM TUBE TP SCH ×2 (09:12→20:31)
--- NOTE | 2021-06-15 09:30 | NUR ---
RN NOTES DUE MEDS GIVEN
--- NOTE | 2021-06-15 10:13 | NUR ---
RN NOTES DR. LIM NOTIFIED ABOUT PATIENT REFUSING CTCA DESPITE BRIEFING HIM BY TOMEKA FROM CT.
[2021-06-15] MEDS ORDERED: LIDOCAINE 1% INJ 50 ML MDV IJ ONE ×2 (11:40→12:00)
[2021-06-15 12:00] VITALS: BP 150/90
[2021-06-15] MEDS ORDERED: HYDROMORPHONE 1 MG/1 ML DISP.SYRIN IV ONE (12:30)
[2021-06-15] MEDS ORDERED: ONDA4TAB5 PO (12:42)
[2021-06-15] MEDS ORDERED: CIPR250T4 PO (12:42)
[2021-06-15] MEDS ORDERED: METR500T PO (12:42)
[2021-06-15] MEDS ORDERED: PANT40TA2 PO (12:42)
[2021-06-15] MEDS ORDERED: METO50TA16 PO (12:42)
[2021-06-15] MEDS ORDERED: HYDROMORPHONE 1 MG/1 ML DISP.SYRIN IV STA (13:02)
--- NOTE | 2021-06-15 13:05 | NUR ---
RN NOTES POST BONE MARROW ASPIRATION AND BIOPSY. ORDERED CBC WELL. ALL SPECIMEN SENT TO LABORATORY.
[2021-06-15 13:26] LABS: BASOPHILS # (AUTO) 0.2 K/uL (0.0-0.2); BASOPHILS % (AUTO) 1.3 % (0.0-2.0); EOSINOPHILS % (AUTO) 3.3 % (0.0-6.0); HEMATOCRIT 25 % (39-51); HEMOGLOBIN 8.3 g/dL (13.5-17.5); LYMPHOCYTES # (AUTO) 0.9 K/uL (0.8-4.8); LYMPHOCYTES % (AUTO) 6.9 % (20.0-44.0); MEAN CORPUSCULAR HGB CONC 33 g/dl (31.0-36.0); MEAN CORPUSCULAR VOLUME 93 fL (80-96); MONOCYTES % (AUTO) 8.3 % (2.0-12.0); NEUTROPHILS # (AUTO) 10.1 K/uL (1.8-8.9); NEUTROPHILS % (AUTO) 80.2 % (43.0-81.0); PLATELET COUNT (AUTO) 252 K/uL (150-450); RED BLOOD CELL COUNT(AUTO) 2.69 MIL/uL (4.5-6.0); WHITE BLOOD COUNT (AUTO) 12.5 K/uL (4.3-11.0)
[2021-06-15] MEDS: METOPROLOL TARTRATE 50 MG TABLET PO SCH ×2 (13:32→17:00)
[2021-06-15 14:27] LABS: EOSINOPHILS % (MANUAL) 4 % (0-4); LYMPHOCYTES % (MANUAL) 9 % (16-48); MONOCYTES % (MANUAL) 7 % (0-11.0); MYELOCYTES % 2 % (0-0); NEUTROPHILS % (MANUAL) 78 (42-76)
--- NOTE | 2021-06-15 16:43 | NUR ---
RN OPENING NOTES: Patient is alert and oriented x 4, no respiratory distress. Left upper arm IV line dressing clean-intact with no s/sx of infiltration. Complains of chronic pain relieved after administartion of dilaudid. Bed in locked position with bed alarm on, in lowest position with side rails up. Call light within reach. Patient scheduled for bone marrow aspiration biopsy today. Addendum: 06/15/21 at 1647 by ERIC SINGLETARY RN ADDENDUM [id number] NOTES
[2021-06-15] MEDS: diphenhydrAMINE HCL 50 MG/ML VIAL IV PRN (16:54)
--- NOTE | 2021-06-15 19:20 | NUR ---
RN CLOSING NOTES Patient is alert and oriented x4, no respiratory distress, no SOB. Ambulatory. IV line patent clean and intact. S/P bone marrow aspiration biopsy done, sample sent to the lab. Dilaudid given pre and post procedure. Pressure dressing applied. No change in condition. Refused procedure ordered by cardio. Remains on Abx well tolerated. Communicated accordingly.
--- NOTE | 2021-06-15 19:30 | NUR ---
RN OPENING NOTE RECEIVED PT AWAKE IN BED. A/O X4. PT IS STABLE ON ROOM AIR. NO SOB OR S/S OF RESPIRATORY DISTRESS NOTED. PT HAS NO C/O PAIN OR DISCOMFORT AT THIS TIME. IV ACCESS IN JAYMIE MIDLINE, INTACT AND PATENT. SAFETY MEASURES MAINTAINED. BED IN LOWEST LOCKED POSITION, HOB ELEVATED, SIDE RAILS UP X2. CALL LIGHT AND TABLE WITHIN REACH. WILL CONTINUE WITH PLAN OF CARE.
[2021-06-15 20:00] VITALS: BP 147/78
--- NOTE | 2021-06-15 22:24 | NUR ---
RN NOTE PT C/O ACHING, LOWER GENERALIZED PAIN, RATED 10/10 ON PAIN SCALE. VSS. PER PT REQUEST, ADMINISTERED DILAUDID 1 MG IV Q3H PRN FOR PAIN. WILL CONTINUE TO MONITOR PT.
[2021-06-16] MEDS: METOPROLOL TARTRATE 50 MG TABLET PO SCH ×4 (00:31→17:17)
[2021-06-16] MEDS: diphenhydrAMINE HCL 50 MG/ML VIAL IV PRN ×3 (00:51→22:22)
[2021-06-16] MEDS: HYDROMORPHONE 1 MG/1 ML DISP.SYRIN IV PRN ×3 (02:16→19:03)
[2021-06-16 04:00] VITALS: BP 158/96
[2021-06-16] MEDS: DIPHENOXYLATE HCL/ATROP SULF 1 UDTAB TABLET PO PRN ×2 (05:03→20:43)
[2021-06-16] MEDS: METRONIDAZOLE 500 MG TABLET PO SCH ×3 (05:03→20:43)
--- NOTE | 2021-06-16 06:42 | NUR ---
RN CLOSING NOTE PT IS IN BED WITH EYES CLOSED, AROUSABLE TO STIMULATION. A/O X4. PT IS STABLE ON ROOM AIR. NO SOB OR S/S OF RESPIRATORY DISTRESS NOTED. PT HAS NO C/O PAIN OR DISCOMFORT AT THIS TIME. IV ACCESS IS INTACT, PATENT, AND FLUSHING WELL. ALL NEEDS HAVE BEEN MET. PAIN MANAGEMENT ADMINISTERED PER ORDER. SAFETY PRECAUTIONS MAINTAINED AT ALL TIMES. BED IN LOWEST LOCKED POSITION, HOB ELEVATED, SIDE RAILS UP X2. CALL LIGHT AND TABLE WITHIN REACH. WILL ENDORSE TO ONCOMING NURSE FOR JARED.
[2021-06-16] MEDS: hydrALAZINE HCL 50 MG TABLET PO SCH ×3 (09:10→17:00)
[2021-06-16] MEDS: CIPROFLOXACIN HCL 250 MG TABLET PO SCH ×2 (09:10→20:43)
[2021-06-16] MEDS: PANTOPRAZOLE 40 MG TABLET.DR PO SCH ×2 (09:11→17:12)
[2021-06-16] MEDS: AMLODIPINE BESYLATE 10 MG TABLET PO SCH (09:11)
[2021-06-16] MEDS: NITROGLYCERIN 30 GM TUBE TP SCH ×2 (09:12→20:48)
[2021-06-16] MEDS: ENSURE CLEAR 237 ML LIQUID (MIX BERRY) PO SCH ×2 (09:13→12:46)
[2021-06-16 12:00] VITALS: BP 104/78
[2021-06-16] MEDS ORDERED: IOHEXOL-350 100 ML VIAL IV ONE (14:56)
[2021-06-16] MEDS ORDERED: IV NS 0.9% 0 ML IV ONE (14:56)
[2021-06-16] MEDS: GABAPENTIN 300 MG CAPSULE PO SCH (17:12)
--- NOTE | 2021-06-16 19:40 | NUR ---
RN OPENING NOTE RECEIVED PT AWAKE IN BED. A/O X4. PT IS STABLE ON ROOM AIR. NO SOB OR S/S OF RESPIRATORY DISTRESS NOTED. PT HAS NO C/O PAIN OR DISCOMFORT AT THIS TIME. IV ACCESS IN (L) UA MIDLINE, INTACT AND PATENT. SAFETY MEASURES MAINTAINED. BED LOCKED IN LOWEST POSITION, HOB ELEVATED, SIDE RAILS UP X2. CALL LIGHT AND TABLE WITHIN REACH. NO ACUTE DISTRESS NOTED AT THIS TIME
[2021-06-16 20:00] VITALS: BP 140/93
--- NOTE | 2021-06-16 21:00 | NUR ---
RN NOTE PT. REPORTS DIARRHEA X1 AND REQUEST PRN DOSE OF LOMOTIL. NO OTHER EPISODES OF DIARRHEA REPORTED AT THIS TIME.
[2021-06-17] MEDS: METOPROLOL TARTRATE 50 MG TABLET PO SCH ×3 (00:21→12:20)
[2021-06-17] MEDS: oxyCODONE IR immediate release 5 MG PO PRN ×2 (00:22→09:42)
--- NOTE | 2021-06-17 01:00 | NUR ---
RN NOTE PT. REPORTS PAIN LEVEL OF 9/10 GENERALIZED R/T TO BONE MARROW BIOPSY AND DX OF SICKLE CELL ANEMIA. PRN DOSE OF OXYCODONE GIVEN PO AT 0100. PT. NOW REPORTS RELIEF OF PAIN. NO ACUTE DISTRESS NOTED AT THIS TIME.
[2021-06-17] MEDS: ONDANSETRON HCL/PF 4 MG/2 ML VIAL IVP PRN (03:21)
[2021-06-17 04:00] VITALS: BP 128/79
--- NOTE | 2021-06-17 04:09 | NUR ---
RN NOTE PT. REPORTS EMESIS X2, PRN DOSE OF ZOFRAN GIVEN AT 0321, NAUSEA AND EMESIS NOW RELIEVED. SLEEPING COMFORTABLY. NO ACUTE DISTRESS NOTES AT THIS TIME
[2021-06-17] MEDS: METRONIDAZOLE 500 MG TABLET PO SCH ×2 (05:05→12:18)
--- NOTE | 2021-06-17 06:35 | NUR ---
RN CLOSING NOTE PT IS IN BED WATCHING TV, A/O X4. PT IS STABLE ON ROOM AIR. NO SOB OR S/S OF RESPIRATORY DISTRESS NOTED. PT HAS NO C/O PAIN OR DISCOMFORT AT THIS TIME. IV (R) UA MIDLINE ACCESS IS INTACT, PATENT, AND FLUSHING WELL. ALL NEEDS HAVE BEEN MET. PAIN MANAGEMENT ADMINISTERED PER ORDER. NAUSEA AND DIARRHEA ADDRESSED THROUGHOUT SHIFT WITH PRN MEDS. SAFETY PRECAUTIONS MAINTAINED AT ALL TIMES. BED LOCKED IN LOWEST POSITION, HOB ELEVATED, SIDE RAILS UP X2. PT. AMBULATORY WITH STEADY GAIT. CALL LIGHT AND TABLE WITHIN REACH. WILL ENDORSE CONTINUITY OF CARE TO MORNING SHIFT RN.
[2021-06-17 07:30] LABS: BASOPHILS # (AUTO) 0.1 K/uL (0.0-0.2); EOSINOPHILS % (AUTO) 3.7 % (0.0-6.0); HEMATOCRIT 24 % (39-51); HEMOGLOBIN 8.2 g/dL (13.5-17.5); LYMPHOCYTES # (AUTO) 2.2 K/uL (0.8-4.8); LYMPHOCYTES % (AUTO) 18.5 % (20.0-44.0); MEAN CORPUSCULAR HGB CONC 34 g/dl (31.0-36.0); MEAN CORPUSCULAR VOLUME 93 fL (80-96); MONOCYTES # (AUTO) 1.1 K/uL (0.1-1.30); NEUTROPHILS % (AUTO) 67.8 % (43.0-81.0); PLATELET COUNT (AUTO) 279 K/uL (150-450); RED BLOOD CELL COUNT(AUTO) 2.59 MIL/uL (4.5-6.0); WHITE BLOOD COUNT (AUTO) 11.8 K/uL (4.3-11.0)
--- NOTE | 2021-06-17 07:30 | NUR ---
RN NOTE: RECEIVED PT LYING IN BED SLEEPING INTERMITTENTLY. A/O X4. PT IS STABLE ON ROOM AIR. VSS, AFEBRILE NO SOB NOTED. PT HAS NO C/O PAIN OR DISCOMFORT AT THIS TIME. IV ACCESS IN (L) UA MIDLINE, INTACT, PATENT AND FLUSHED. SAFETY MEASURES MAINTAINED. BED LOCKED IN LOWEST POSITION, HOB ELEVATED, SIDE RAILS UP X2. CALL LIGHT AND TABLE WITHIN REACH. NO ACUTE DISTRESS NOTED AT THIS TIME.
[2021-06-17 07:49] LABS: CALCIUM, SERUM 8.9 mg/dL (8.5-10.1); CREATININE 1.8 mg/dL (0.6-1.3); POTASSIUM 3.5 mmol/L (3.5-5.1)
[2021-06-17] MEDS: GABAPENTIN 300 MG CAPSULE PO SCH ×2 (09:38→12:21)
[2021-06-17] MEDS: AMLODIPINE BESYLATE 10 MG TABLET PO SCH (09:38)
[2021-06-17] MEDS: CIPROFLOXACIN HCL 250 MG TABLET PO SCH (09:38)
[2021-06-17] MEDS: PANTOPRAZOLE 40 MG TABLET.DR PO SCH (09:39)
[2021-06-17] MEDS: hydrALAZINE HCL 50 MG TABLET PO SCH ×2 (09:39→12:20)
--- NOTE | 2021-06-17 09:42 | NUR ---
RN NOTE: PAIN PT C/O 06/30 GENERALIZED PAIN. MEDICATED WITH OXYCODONE PO PRN. WILL CONT TO MONITOR EFFECTIVENESS OF PRN MEDICATION
[2021-06-17] MEDS: NITROGLYCERIN 30 GM TUBE TP SCH (09:44)
[2021-06-17] MEDS ORDERED: GABA-532 PO (11:01)
[2021-06-17] MEDS ORDERED: OXYC10TA49 PO (11:01)
[2021-06-17 12:00] VITALS: BP 142/84
[2021-06-17 12:20] VITALS: BP 142/84
[2021-06-17 12:37] LABS: EOSINOPHILS % (MANUAL) 3 % (0-4); LYMPHOCYTES % (MANUAL) 23 % (16-48); MONOCYTES % (MANUAL) 7 % (0-11.0); NEUTROPHILS % (MANUAL) 67 (42-76)
--- NOTE | 2021-06-17 14:35 | NUR ---
ANALYTICAL CHEMISTRY TEACHER NOTE: PT DISCHARGED HOME IN STABLE CONDITION. VSS, AFEBRILE NOT SOB. EXIT CARE AND EDUCATION EXPLAINED TO THE PT. PT VERBALIZED UNDERSTANDING. EXIT CARE SIGNED. MIDLINE D/C'D AND PT ID BAND REMOVED. PATIENT BELONGINGS RETURNED TO THE PT. PT LEFT THE UNIT VIA WHEELCHAIR AND TO BE TRANSPORTED HOME VIA PRIVATE CAR WITH .
== END 2021-06-17 17:50 | disposition home or self-care (01) | DRG 682 ==
LOC: ER 23:42 → TRANSITION 06-09 03:06 → TELE1 06-09 06:32 → TELE-TD 06-09 06:33 → TELE1 06-10 09:09 → MEDSG1 06-10 13:34
PROVIDERS: ADMIT Internal Medicine; ATTEND Nurse Practitioner Acute Care
PROC: 30233N1 Transfusion of Nonautologous Red Blood Cells into Peripheral Vein, Percutaneous Approach (ICD-10-PCS; 2021-06-09)
PROC: 05HB33Z Insertion of Infusion Device into Right Basilic Vein, Percutaneous Approach (ICD-10-PCS; 2021-06-09)
PROC: 05HA33Z Insertion of Infusion Device into Left Brachial Vein, Percutaneous Approach (ICD-10-PCS; 2021-06-11)
PROC: 07DR3ZX Extraction of Iliac Bone Marrow, Percutaneous Approach, Diagnostic (ICD-10-PCS; principal; 2021-06-15)
DX: N17.0 Acute kidney failure with tubular necrosis (principal); I21.A1 Myocardial infarction type 2; D57.00 Hb-SS disease with crisis, unspecified; E87.1 Hypo-osmolality and hyponatremia; I50.30 Unspecified diastolic (congestive) heart failure; F11.20 Opioid dependence, uncomplicated; D69.6 Thrombocytopenia, unspecified; E87.8 Other disorders of electrolyte and fluid balance, not elsewhere classified; N18.9 Chronic kidney disease, unspecified; Z90.49 Acquired absence of other specified parts of digestive tract; D47.2 Monoclonal gammopathy; Z86.73 Personal history of transient ischemic attack (TIA), and cerebral infarction without residual deficits; Z20.822 Contact with and (suspected) exposure to COVID-19; Z98.84 Bariatric surgery status; I25.10 Atherosclerotic heart disease of native coronary artery without angina pectoris; Z95.5 Presence of coronary angioplasty implant and graft; E86.1 Hypovolemia; E61.1 Iron deficiency; R74.01 Elevation of levels of liver transaminase levels; K52.9 Noninfective gastroenteritis and colitis, unspecified; Z68.30 Body mass index [BMI] 30.0-30.9, adult
CPT/HCPCS: 36410; 36415; 70450-TC; 71045-TC; 71250-TC; 76700-TC; 77075-TC; 80048-TC; 80061-TC; 80074; 80076-TC; 81001; 82232; 82272-TC; 82728-TC; 82784; 83010; 83021; 83540-TC; 83605-TC; 83615-TC; 83690-TC; 83735-TC; 84155; 84165; 84484-TC; 85025-TC; 85027-TC; 85045-TC; 85610-TC; 85660; 85730-TC; 86225; 86235; 86334; 86431-TC; 86706; 86850-TC; 87040-TC; 87086-TC; 87340; 93307-TC; A4216; A6403; C9113; C9803; G0378; J0696; J1100; J1170; J1200; J1644; J2405; J2543; J2916; J3370; J3490; J7030; J7050; J7060; J7120; P9016; Q9967; U0003

== ENCOUNTER 2021-10-30 17:26 | Inpatient (IN) | payer BC, OTHER ==
[~2021-10-30] VITALS: Ht 180.3 cm; Wt 95.3 kg
[~2021-10-30 17:26] MED LIST: AMLO1CAP2 PO; CIPR250T4 PO; GABA-532 PO; METO50TA16 PO; METR500T PO; ONDA4TAB5 PO; OXYC10TA49 PO; PANT40TA2 PO; PIPERACILLIN /TAZOBACTAM 3.375 G in IV D5W 50 ML IV ONE
--- NOTE | 2021-10-30 17:55 | NUR ---
DR GRAHAM AT BEDSIDE
[2021-10-30] MEDS ORDERED: IV LR 1000 ML 1,000 ML IV ONE ×2 (18:00→19:30)
[2021-10-30] MEDS ORDERED: HYDROMORPHONE 1 MG/1 ML DISP.SYRIN IV ONE ×2 (18:00→23:30)
[2021-10-30] MEDS ORDERED: HYDROMORPHONE 1 MG/1 ML DISP.SYRIN ONE ×2 (18:04→19:56)
--- NOTE | 2021-10-30 18:20 | NUR ---
CERTIFIED DETENTION DEPUTY AT BEDSIDE
--- NOTE | 2021-10-30 18:25 | NUR ---
IV LACTATED RINGER 1000ML IVPB LAC 20G END TIME: 1924
[2021-10-30 18:44] LABS: CALCIUM, SERUM 8.6 mg/dL (8.5-10.1); CARBON DIOXIDE 25 mmol/L (21-32); CHLORIDE 101 mmol/L (98-107); CREATININE 6.2 mg/dL (0.6-1.3); GLUCOSE 85 mg/dL (74-106); SODIUM SERUM 135 mmol/L (136-145); UREA NITROGEN, BLOOD 49 mg/dL (7-18)
[2021-10-30 18:57] LABS: ALANINE AMINOTRANSFERASE 79 U/L (12-78); ALBUMIN 3.6 g/dL (3.4-5.0); ALKALINE PHOSPHATASE 87 U/L (46-116); ASPARTATE AMINOTRANSFERASE 75 U/L (15-37); BILIRUBIN,DIRECT 0.3 mg/dL (0.0-0.2); BILIRUBIN,TOTAL 1.5 mg/dL (0.2-1.0); TOTAL PROTEIN, SERUM 6.9 g/dL (6.4-8.2)
[2021-10-30 19:03] LABS: BASOPHILS % (AUTO) 0.2 % (0.0-2.0); EOSINOPHILS % (AUTO) 1.3 % (0.0-6.0); HEMATOCRIT 26 % (39-51); HEMOGLOBIN 8.8 g/dL (13.5-17.5); LYMPHOCYTES # (AUTO) 2.7 K/uL (0.8-4.8); LYMPHOCYTES % (AUTO) 19.2 % (20.0-44.0); MEAN CORPUSCULAR HGB CONC 34 g/dl (31.0-36.0); MEAN CORPUSCULAR VOLUME 87 fL (80-96); MONOCYTES # (AUTO) 1.5 K/uL (0.1-1.30); NEUTROPHILS # (AUTO) 9.5 K/uL (1.8-8.9); NEUTROPHILS % (AUTO) 68.3 % (43.0-81.0); PLATELET COUNT (AUTO) 151 K/uL (150-450); RED BLOOD CELL COUNT(AUTO) 2.96 MIL/uL (4.5-6.0); WHITE BLOOD COUNT (AUTO) 13.9 K/uL (4.3-11.0)
--- NOTE | 2021-10-30 19:05 | NUR ---
ASSUMED CARE. PT BIBSELF C/O LUQ ABD PAIN, DEHYRDATION, AND THINKING HE MAY BE IN SICKLE CELL CRISIS. PT AAOX4 BREATHING EVENLY AND UNLABORED. PT HAS LAC 20G. PT ATTACHED TO MONITOR AND POX. PT GIVEN BLANKET AND CALL LIGHT WITHIN REACH.
--- NOTE | 2021-10-30 19:12 | NUR ---
VERIFIED WITH PHARMACY THAT LR CAN BE GIVEN AT THE SAME TIME WITH VANCOMYCIN, BUT NOT ZOSYN. ENDORSED TO ABI COLMENARES.
[2021-10-30] MEDS ORDERED: PIPERACILLIN /TAZOBACTAM 3.375 G VIAL IV ONE (19:20)
[2021-10-30] MEDS ORDERED: VANCOMYCIN 1 GM VIAL ONE (19:20)
[2021-10-30] MEDS ORDERED: PIPERACILLIN /TAZOBACTAM 3.375 G in IV D5W 50 ML IV ONE (19:30)
[2021-10-30] MEDS ORDERED: VANCOMYCIN 1 GM in IV D5W 250 ML IV ONE (19:30)
--- NOTE | 2021-10-30 19:55 | NUR ---
MD VERBAL ORDER 0.5 DILAUDIDMG IVP
--- NOTE | 2021-10-30 22:16 | NUR ---
RECIEVED BED 315-1
[2021-10-30] MEDS ORDERED: ONDANSETRON HCL/PF 4 MG/2 ML VIAL IVP PRN (22:30)
[2021-10-30] MEDS ORDERED: IV NS 0.9% 1,000 ML IV PRN (22:30)
[2021-10-30] MEDS ORDERED: ACETAMINOPHEN 325 MG TABLET PO PRN (22:30)
[2021-10-30] MEDS ORDERED: ZOLPIDEM TARTRATE 5 MG TABLET PO PRN (22:30)
[2021-10-30] MEDS ORDERED: Z GUARD REMEDY 2 OZ OINT TP PRN (22:30)
[2021-10-30] MEDS ORDERED: MAGNESIUM HYDROXIDE 30 ML UDC PO PRN (22:30)
[2021-10-30] MEDS ORDERED: MAG HYDROX/AL HYDROX/SIMETH 30 ML UDC PO PRN (22:30)
--- NOTE | 2021-10-30 23:01 | NUR ---
GAVE REPORT TO DEDRA ABRAHAM FOR JARED
--- NOTE | 2021-10-30 23:12 | NUR ---
MS RN ADMITTING NOTES PATIENT ARRIVED ON UNIT WITH NURSE VIA WHEELCHAIR. PATIENT IS A/OX4. PATIENT WITH REGULAR AND UNLABORED BREATHING ON ROOM AIR, TOLERATED WELL. NO SIGNS AND SYMPTOMS OF DISTRESS NOTED. NO COMPLAIN OF PAIN OR DISCOMFORT AT THIS TIME. IV ACCESS LAC G#18 SL. ACCESS INTACT AND PATENT. SAFETY PRECAUTIONS ENFORCED WITH BED LOCKED AND AT LOWEST POSITION. SIDERAILS UP X2. CALL LIGHT WITHIN REACH AT ALL TIMES. WILL CONTINUE TO MONITOR PATIENT.
[2021-10-30 23:20] VITALS: BP 110/49
[2021-10-30] MEDS ORDERED: ONDANSETRON 4 MG TAB.RAPDIS PO PRN (23:30)
[2021-10-31] MEDS: KETOROLAC TROMETHAMINE INJ 30 MG/ML VIAL IV PRN ×2 (00:12→08:47)
--- NOTE | 2021-10-31 00:13 | NUR ---
MS RN NOTES PATIENT COMPLAINED OF PAIN. ADMINISTERED PAIN MEDICATION TORADOL 30MG/ML Q8H PRN ORDERED BY HOSPITALIST.
[2021-10-31] MEDS: oxyCODONE IR immediate release 5 MG PO PRN ×2 (05:45→13:40)
--- NOTE | 2021-10-31 05:46 | NUR ---
MS RN NOTES PATIENT COMPLAINED OF PAIN. ADMINISTERED OXY IR 10 MG QID PRN ORDERED BY HOSPITALIST.
--- NOTE | 2021-10-31 06:43 | NUR ---
MS DEDRA PERSON NOTES PATIENT LAYING AWAKE IN BED. PATIENT IS A/OX4. PATIENT WITH REGULAR AND UNLABORED BREATHING ON ROOM AIR, TOLERATED WELL. NO SIGNS AND SYMPTOMS OF DISTRESS NOTED. NO COMPLAIN OF PAIN OR DISCOMFORT AT THIS TIME. IV ACCESS LAC G#18 SL. ACCESS INTACT AND PATENT. SAFETY PRECAUTIONS ENFORCED WITH BED LOCKED AND AT LOWEST POSITION. SIDERAILS UP X2. CALL LIGHT WITHIN REACH AT ALL TIMES. WILL ENDORSE CONTINUITY OF CARE TO DAY SHIFT NURSE.
--- NOTE | 2021-10-31 07:34 | NUR ---
RN OPENING NOTES Patient seen comfortably lying in bed, no SOB, no apparent distress noted, breathing even and unlabored, denies any pain or discomfort at this time, no grimacing. Call light left within reach, safety precautions in place, brakes locked, side rails up X 2, will monitor closely for any changes.
[2021-10-31 08:00] VITALS: BP 93/56
[2021-10-31] MEDS: GABAPENTIN 300 MG CAPSULE PO SCH ×3 (08:47→16:54)
[2021-10-31] MEDS: PANTOPRAZOLE 40 MG TABLET.DR PO SCH ×2 (08:47→16:54)
[2021-10-31] MEDS ORDERED: AMLODIPINE BESYLATE 10 MG TABLET PO SCH (09:00)
[2021-10-31] MEDS: BENAZEPRIL HCL 20 MG TABLET PO SCH (09:00)
[2021-10-31] MEDS: AZITHROMYCIN 500 MG in IV D5W 250 ML IV SCH (11:06)
[2021-10-31 11:57] LABS: BASOPHILS % (AUTO) 0.3 % (0.0-2.0); HEMATOCRIT 24 % (39-51); HEMOGLOBIN 8.6 g/dL (13.5-17.5); LYMPHOCYTES # (AUTO) 1.3 K/uL (0.8-4.8); LYMPHOCYTES % (AUTO) 13.9 % (20.0-44.0); MEAN CORPUSCULAR HGB CONC 35 g/dl (31.0-36.0); MEAN CORPUSCULAR VOLUME 86 fL (80-96); MONOCYTES % (AUTO) 10.9 % (2.0-12.0); NEUTROPHILS # (AUTO) 6.8 K/uL (1.8-8.9); NEUTROPHILS % (AUTO) 71.9 % (43.0-81.0); PLATELET COUNT (AUTO) 132 K/uL (150-450); RED BLOOD CELL COUNT(AUTO) 2.83 MIL/uL (4.5-6.0); WHITE BLOOD COUNT (AUTO) 9.4 K/uL (4.3-11.0)
[2021-10-31 12:14] LABS: ALBUMIN 3.2 g/dL (3.4-5.0); BILIRUBIN,TOTAL 2.9 mg/dL (0.2-1.0); CREATININE 3.6 mg/dL (0.6-1.3); MAGNESIUM 2.2 mg/dL (1.8-2.4); PHOSPHORUS 4.2 mg/dL (2.5-4.9); POTASSIUM 3.6 mmol/L (3.5-5.1); TOTAL PROTEIN, SERUM 6.4 g/dL (6.4-8.2)
[2021-10-31] MEDS: IV D5/0.45 NACL 1,000 ML IV SCH ×2 (13:16→20:22)
[2021-10-31] MEDS: CEFTRIAXONE 1 G in IV D5W 50 ML IV SCH (13:16)
[2021-10-31 13:47] LABS: CREATINE KINASE, TOTAL 694 U/L (39-308)
[2021-10-31 14:00] LABS: LIPASE 90 U/L (73-393)
[2021-10-31 16:00] VITALS: BP 113/71
--- NOTE | 2021-10-31 18:37 | NUR ---
RN CLOSING NOTES Patient in bed, breathing even and unlabored, no SOB, no apparent distress noted, no grimacing, no pain or discomfort at this time. Due medications given per MD order, tolerating well. Pain medication given per MD order as needed when non pharmacological measures ineffective. All needs anticipated, kept clean and dry, call light left within reach, safety precautions in place, brakes locked, side rails up X 2, will endorse to next shift for continuity of care.
--- NOTE | 2021-10-31 19:25 | NUR ---
MS/RN OPENING NOTES PT AWAKE IN BED, WATCHING TV. A/OX4. DENIES PAIN AT THIS TIME. RESPIRATIONS EVEN/UNLABORED. PT NONCOMPLIANT WITH DIET, ON NPO BUT SEEN EATING CHIPS. REINFORCED INSTRUCTION ON MD ORDER FOR NPO AND HE STATES HE'LL EAT UNTIL 8PM. PT IN NO ACUTE DISTRESS. IV SITE NO L-AC #20G INTACT, INFUSING D5 1/2 NS @125ML/HR. SAFETY MEASURES IN PLACE, BED IN LOWEST LOCKED POSITION, S/R UPX2, CALL LIGHT WITHIN REACH. WILL CONT TO MONITOR.
[2021-10-31 20:00] VITALS: BP 111/57
[2021-11-01] MEDS: IV D5/0.45 NACL 1,000 ML IV SCH ×3 (04:03→21:32)
[2021-11-01 06:39] LABS: BASOPHILS # (AUTO) 0.1 K/uL (0.0-0.2); BASOPHILS % (AUTO) 0.7 % (0.0-2.0); EOSINOPHILS % (AUTO) 3.7 % (0.0-6.0); HEMATOCRIT 22 % (39-51); HEMOGLOBIN 7.8 g/dL (13.5-17.5); LYMPHOCYTES # (AUTO) 1.8 K/uL (0.8-4.8); LYMPHOCYTES % (AUTO) 20.5 % (20.0-44.0); MEAN CORPUSCULAR HGB CONC 36 g/dl (31.0-36.0); MEAN CORPUSCULAR VOLUME 86 fL (80-96); MONOCYTES # (AUTO) 1.1 K/uL (0.1-1.30); MONOCYTES % (AUTO) 12.3 % (2.0-12.0); NEUTROPHILS # (AUTO) 5.6 K/uL (1.8-8.9); NEUTROPHILS % (AUTO) 62.8 % (43.0-81.0); PLATELET COUNT (AUTO) 141 K/uL (150-450); RED BLOOD CELL COUNT(AUTO) 2.56 MIL/uL (4.5-6.0); WHITE BLOOD COUNT (AUTO) 8.9 K/uL (4.3-11.0)
--- NOTE | 2021-11-01 06:49 | NUR ---
MS/RN CLOSING NOTES PT RESTING IN BED, EASILY AROUSABLE TO STIMULI. NO C/O PAIN AT THIS TIME. NO SOB. NO ACUTE EVENTS DURING THE NIGHT. IV SITE NO L-AC #20G INTACT, INFUSING D5 1/2 NS @125ML/HR. SAFETY MEASURES MAINTAINED. ALL NEEDS ATTENDED TO.
[2021-11-01 07:04] LABS: ALBUMIN 2.9 g/dL (3.4-5.0); BILIRUBIN,DIRECT 0.4 mg/dL (0.0-0.2); BILIRUBIN,TOTAL 2.4 mg/dL (0.2-1.0); CALCIUM, SERUM 8.2 mg/dL (8.5-10.1); CREATININE 2.1 mg/dL (0.6-1.3); MAGNESIUM 2.3 mg/dL (1.8-2.4); PHOSPHORUS 3.1 mg/dL (2.5-4.9); POTASSIUM 3.6 mmol/L (3.5-5.1); TOTAL PROTEIN, SERUM 6.2 g/dL (6.4-8.2)
--- NOTE | 2021-11-01 07:22 | NUR ---
MS RN OPENING NOTES RECEIVED Pt ASLEEP IN BED, IS EASILY AROUSABLE, A/OX4. DENIES PAIN OR DISCOMFORT AT THIS TIME. RESPIRATIONS ARE EVEN AND UNLABORED ON ROOM AIR. IV SITE NOTICED ON L-AC #20g WITH D5 1/2 NS RUNNING @ 125mL/hr. SAFETY MEASURES ARE IN PLACE, BED IS LOCKED AND IN LOWEST POSITION, 2 SIDE RAILS UP, BEDSIDE TABLE AND CALL LIGHT ARE WITHIN REACH. WILL CONTINUE TO MONITOR THROUGHOUT THE SHIFT.
[2021-11-01] MEDS: PANTOPRAZOLE 40 MG TABLET.DR PO SCH ×2 (07:56→17:10)
[2021-11-01 08:00] VITALS: BP 135/60
[2021-11-01 08:07] LABS: BILIRUBIN,URINE NEGATIVE (NEGATIVE); COLOR,URINE YELLOW (YELLOW); LEUKOCYTE ESTERASE ,URINE NEGATIVE (NEGATIVE); NITRITE, URINE NEGATIVE (NEGATIVE); PROTEIN,URINE NEGATIVE (NEGATIVE); UGLUCOSE NEGATIVE (NEGATIVE); UROBILINOGEN,URINE 0.2 EU/dL (0.2)
[2021-11-01] MEDS: GABAPENTIN 300 MG CAPSULE PO SCH ×3 (09:26→17:10)
[2021-11-01] MEDS: BENAZEPRIL HCL 20 MG TABLET PO SCH (09:26)
[2021-11-01] MEDS ORDERED: AMLODIPINE BESYLATE 10 MG TABLET PO SCH (09:29)
[2021-11-01] MEDS: CEFTRIAXONE 1 G in IV D5W 50 ML IV SCH (09:41)
[2021-11-01] MEDS: AZITHROMYCIN 500 MG in IV D5W 250 ML IV SCH (10:42)
--- NOTE | 2021-11-01 19:08 | NUR ---
MS/RN CLOSING NOTES Pt RESTING IN BED, EASILY AROUSABLE TO STIMULI. NO C/O PAIN AT THIS TIME. NO SIGNS OF DISTRESS NOTED. NO SOB, BREATHING IS EVEN AND UNLABORED. NO ACUTE EVENTS DURING THE DAY. IV SITE ON L-AC #20G INTACT, INFUSING D5 1/2 NS @125ML/HR. SAFETY MEASURES MAINTAINED. ALL NEEDS ATTENDED TO. WILL ENDORSE TO ONCOMING SHIFT
--- NOTE | 2021-11-01 19:30 | NUR ---
MS RN OPENING NOTES RECEIVED PT AWAKE IN BED. A/O X4. DENIES PAIN OR DISCOMFORT AT THIS TIME. PT STABLE ON ROOM AIR. NO SOB OR S/S OF RESPIRATORY DISTRESS. IV ACCESS LAC #20g WITH D5 1/2 NS RUNNING @ 125mL/hr. SAFETY PRECAUTIONS IN PLACE. BED IN LOWEST LOCKED POSITION, SIDE RAILS UP X2, CALL LIGHT AND TABLE IN REACH. WILL CONTINUE TO MONITOR..
[2021-11-01 20:00] VITALS: BP 166/100
[2021-11-02] MEDS: IV D5/0.45 NACL 1,000 ML IV SCH ×2 (04:25→12:24)
--- NOTE | 2021-11-02 06:37 | NUR ---
MS RN OPENING NOTES PT AWAKE IN BED. A/O X4. DENIES PAIN OR DISCOMFORT AT THIS TIME. PT STABLE ON ROOM AIR. NO SOB OR S/S OF RESPIRATORY DISTRESS. IV ACCESS R HAND #22G WITH D5 1/2 NS RUNNING @ 125mL/hr. ALL NEEDS MET AT THIS TIME. SAFETY PRECAUTIONS IN PLACE AT THIS TIME. BED IN LOWEST LOCKED POSITION, SIDE RAILS UP X2, CALL LIGHT AND TABLE IN REACH. WILL ENDORSE TO ONCOMING NURSE FOR JARED.
[2021-11-02 06:49] LABS: CALCIUM, SERUM 9.1 mg/dL (8.5-10.1); CREATININE 1.4 mg/dL (0.6-1.3); PHOSPHORUS 1.8 mg/dL (2.5-4.9); POTASSIUM 3.5 mmol/L (3.5-5.1)
[2021-11-02 06:53] LABS: BASOPHILS # (AUTO) 0.1 K/uL (0.0-0.2); BASOPHILS % (AUTO) 0.9 % (0.0-2.0); HEMATOCRIT 27 % (39-51); HEMOGLOBIN 9.4 g/dL (13.5-17.5); LYMPHOCYTES # (AUTO) 1.8 K/uL (0.8-4.8); LYMPHOCYTES % (AUTO) 17.9 % (20.0-44.0); MEAN CORPUSCULAR HGB CONC 36 g/dl (31.0-36.0); MEAN CORPUSCULAR VOLUME 87 fL (80-96); MONOCYTES # (AUTO) 1.2 K/uL (0.1-1.30); MONOCYTES % (AUTO) 11.8 % (2.0-12.0); NEUTROPHILS # (AUTO) 6.5 K/uL (1.8-8.9); NEUTROPHILS % (AUTO) 66.4 % (43.0-81.0); PLATELET COUNT (AUTO) 193 K/uL (150-450); RED BLOOD CELL COUNT(AUTO) 3.06 MIL/uL (4.5-6.0); WHITE BLOOD COUNT (AUTO) 9.8 K/uL (4.3-11.0)
--- NOTE | 2021-11-02 07:00 | NUR ---
MS RN OPENING NOTES RECEIVED Pt ASLEEP IN BED. HE IS EASILY AROUSABLE, A/O X4. DENIES PAIN OR DISCOMFORT AT THIS TIME. Pt STABLE ON ROOM AIR, BREATHING IS EVEN AND UNLABORED. NO SOB OR S/S OF RESPIRATORY DISTRESS NOTED. IV ACCESS ON R HAND #[id number] WITH D5 1/2 NS RUNNING @ 125mL/hr. ALL NEEDS MET AT THIS TIME. SAFETY PRECAUTIONS IN PLACE AT THIS TIME. BED IS LOCKED AND IN LOWEST POSITION, SIDE RAILS UP X2, CALL LIGHT AND BEDSIDE TABLE WITHIN REACH. WILL CONTINUE TO MONITOR THROUGHOUT THE SHIFT.
[2021-11-02 08:00] VITALS: BP 169/98
[2021-11-02] MEDS: PANTOPRAZOLE 40 MG TABLET.DR PO SCH (08:10)
[2021-11-02] MEDS: GABAPENTIN 300 MG CAPSULE PO SCH ×2 (08:10→12:23)
[2021-11-02] MEDS: BENAZEPRIL HCL 20 MG TABLET PO SCH (08:11)
[2021-11-02] MEDS ORDERED: AMLODIPINE BESYLATE 10 MG TABLET PO SCH (09:00)
[2021-11-02] MEDS: CEFTRIAXONE 1 G in IV D5W 50 ML IV SCH (09:31)
[2021-11-02] MEDS ORDERED: NEUTRA PHOS 1 POWD.PACKET PO ONE (11:00)
[2021-11-02] MEDS: AZITHROMYCIN 500 MG in IV D5W 250 ML IV SCH (11:08)
[2021-11-02] MEDS: oxyCODONE IR immediate release 5 MG PO PRN (12:24)
[2021-11-02] MEDS ORDERED: AZIT250T PO (13:49)
--- NOTE | 2021-11-02 15:45 | NUR ---
MS RN NOTES- DISCHARGE Pt IS BEING DISCHARGED. HE IS NOW MEDICALLY STABLE, A/OX4, AMBULATORY WITH A STEADY GAIT. BREATHING IS EVEN AND UNLABORED ON ROOM AIR. NO COMPLAINTS OF PAIN OR SIGNS OF DISTRESS. Pt HAS ALL BELONGINGS AND IS LEAVING HOME WITH HIS [place] VIA THEIR CAR. ALL PAPER WORK HAS BEEN GIVEN TO Pt, HAS A GOOD UNDERSTANDING OF HIS CARE. IV ON R HAND HAS BEEN REMOVED.
[2021-11-02 16:00] VITALS: BP 154/91
== END 2021-11-02 16:25 | disposition home or self-care (01) | DRG 682 ==
LOC: ER 18:59 → TELE 22:35 → MED 10-31 00:15
PROVIDERS: ADMIT Nurse Practitioner Acute Care; ATTEND Student in an Organized Health Care Education/Training Program
DX: N17.0 Acute kidney failure with tubular necrosis (principal); J15.9 Unspecified bacterial pneumonia; M62.82 Rhabdomyolysis; I25.10 Atherosclerotic heart disease of native coronary artery without angina pectoris; Z95.5 Presence of coronary angioplasty implant and graft; I10 Essential (primary) hypertension; D57.1 Sickle-cell disease without crisis; Z20.822 Contact with and (suspected) exposure to COVID-19; D72.829 Elevated white blood cell count, unspecified; N20.0 Calculus of kidney; R74.01 Elevation of levels of liver transaminase levels; N18.9 Chronic kidney disease, unspecified; I12.9 Hypertensive chronic kidney disease with stage 1 through stage 4 chronic kidney disease, or unspecified chronic kidney disease
CPT/HCPCS: 36415; 71045-TC; 71250-TC; 76770-TC; 80048-TC; 80053-TC; 80076-TC; 82550-TC; 82553; 83605-TC; 83690-TC; 83735-TC; 83880; 84100-TC; 84484-TC; 85025-TC; 85045-TC; 85378-TC; 85730-TC; 86850-TC; 87040-TC; 87081-TC; 87086-TC; C9803; G0378; J0456; J0696; J1170; J1885; J2543; J3370; J3490; J7030; J7042; J7060; J7120